=== PATIENT | female | born 1965 | race Caucasian/White ===

== ENCOUNTER 2020-07-02 15:44 | Outpatient (CLI) | payer BC, OTHER ==
--- NOTE | 2020-07-04 09:51 | MRI Report ---
PROCEDURE: Foot LT W/O INDICATIONS: INTERMETATARSAL PAIN LT FOOT TECHNIQUE: Noncontrast coronal and sagittal T1 spin echo and STIR; axial T1 spin echo and T2 fast spin echo with fat saturation through the left foot. COMPARISON: None. FINDINGS: Image quality: Excellent. Bones: The visualized bone marrow demonstrates normal signal on all sequences. The overlying cortex appears intact. No fractures lines or intra-osseous lesions. Soft tissues: In the area of the fiducial placed on the plantar surface of the forefoot, no definite focal abnormal signal abnormality is seen. This is in the region of the flexor tendons of the third and fourth toe however these appear normal. Theoretically, the fat signal intensity seen in this loca tion could be related to lipoma although doubtful given symmetric appearance to the other toes in the similar plantar region. This is also the location of the distal plantar fascia The scanned muscles demonstrate normal overall bulk and internal signal. Subcutaneous tissues appear normal as well. No soft tissue masses are present. IMPRESSION: No discrete mass identified in the region of the plantar forefoot, marked by the fiducial. Technicall y, a small lipoma cannot be entirely excluded. Recommend clinical management. Fluid between the first-second and third-fourth metatarsal heads raising possibility of intermetatars al bursitis. No evidence of stress fracture Normal MR appearance of the plantar tendons, and plantar fascia. Reviewed by: Carson Moy MD on 07/04/2020 9:50 AM PDT Approved by: Carson Moy MD on 07/04/2020 9:50 AM PDT Station ID: [id number]
== END 2020-07-02 15:45 | disposition home or self-care (01) ==
LOC: DI 15:44
PROVIDERS: ATTEND Podiatrist
DX: R93.6 Abnormal findings on diagnostic imaging of limbs (principal)

== ENCOUNTER 2021-11-17 15:10 | Emergency (ER) | payer BC, OTHER ==
[2021-11-17 15:17] VITALS: BP 160/102
--- NOTE | 2021-11-17 15:35 | ED Physician Documentation ---
PD HPI LOWER EXT INJURY - Stated complaint Stated Complaint: R ANKLE INJ - Chief complaint Chief Complaint: Trauma Ext - History obtained from History obtained from: Patient - History of Present Illness PD HPI LOW EXT INJURY LOCATION: Right, Ankle Type of injury: Twist Where injury occurred: Home Timing - onset: How many hours ago (2) Timing - duration: Hours (2) Timing - details: Abrupt onset, Still present Worsened by: Moving, Palpating, Other (walking) Associated symptoms: Swelling. No: Weakness, Numbness Similar symptoms before: Has not had sx before Recently seen: Not recently seen Review of Systems Skin: denies: Abrasion (s), Laceration (s) Neurologic: denies: Focal weakness, Numbness PD PAST MEDICAL HISTORY - Past Medical History Cardiovascular: Hypertension Respiratory: None Neuro: None GI: None CLINICAL LABORATORY ASSISTANT: None : None HEENT: None Psych: None Musculoskeletal: None Derm: None - Past Surgical History Past Surgical History: Yes - Present Medications Home Medications: Ambulatory Orders Medication Instructions Recorded Confirmed Calcium Citrate/Vitamin D3 2 tab PO DAILY 11/17/21 11/17/21 [Calcium Cit 200 mg-D3 125 Unit] Multivitamin 1 tab PO DAILY 11/17/21 11/17/21 - Allergies Allergies/Adverse Reactions: Allergies Allergy/AdvReac Type Severity Reaction Status Date / Time No Known Drug Allergies Allergy Verified 11/17/21 15:34 - Social History Does the pt smoke?: Yes Smoking Status: Current every day smoker Does the pt drink ETOH?: No Does the pt have substance abuse?: No - Immunizations Immunizations are current?: Yes - POLST Patient has POLST: No PD ED PE NORMAL - Vitals Vital signs reviewed: Yes - General General: Alert and oriented X 3, Well developed/nourished, Other (appears in pain due to ankle. ) - Derm Derm: Normal color, Warm and dry - Extremities Extremities: Other (right ankle with general tenderness and swelling, but mostly over lateral malleolus. Stress testing limited due to pain and swelling, but no gross laxity with inversion. ) - Neuro Neuro: Alert and oriented X 3, No motor deficit, No sensory deficit, Normal speech Results - Vitals Vitals: Vital Signs - 24 hr 11/17/21 15:14 Temperature 36.7 C Heart Rate 112 H Respiratory 18 Rate Blood Pressure 160/102 H O2 Saturation 98 Oxygen O2 Source Room air - Rads (name of study) right ankle Radiology: Prelim report reviewed (minimally displaced fracture of lateral malleolus. ), EMP read contemporaneously (distal fibular avulsion fracture. ), See rad report PD MEDICAL DECISION MAKING - ED course Complexity details: reviewed results (small avulsion fracture distal fibula. ), considered differential, d/w patient Departure - Departure Disposition: 01 Home, Self Care Clinical Impression: Fracture of distal end of fibula Qualifiers: Encounter type: initial encounter Fracture type: closed Fracture morphology: unspecified fracture morphology Laterality: right Qualified Code(s): S82.831A - Other fracture of upper and lower end of right fibula, initial encounter for closed fracture Condition: Stable Record reviewed to determine appropriate education?: Yes Instructions: ED Fx Ankle Lateral Malleolus Follow-Up: EUNICE LANDERS MD [Primary Care Provider] - Morgan Bonilla MD [Provider Admit Priv/Credential] - Comments: Use ibuprofen or naproxen anti-inflammatories 2-3 times daily over the next week or so. To that add Tylenol every 4-6 hours if needed for pain. You do have a small avulsion fracture off the end of the fibula which is the outside part of the ankle. This represents an attachment point for the ligaments on the outside of the ankle and means that some of the ligaments were uprooted. These can take several weeks or more to heal. Use the walking cast boot when up and around over the next 3 weeks or so. Follow-up with orthopedics in about 7 to 10 days for recheck to ensure its healing up well along the way. Call for an appointment. Progress activity as tolerated based on comfort. Ice elevate and rest the ankle often over the next few days to reduce swelling. Discharge Date/Time: 11/17/21 16:28
--- NOTE | 2021-11-17 15:53 | XRAY Report ---
PROCEDURE: Ankle 3 View RT INDICATIONS: Trauma TECHNIQUE: 3 views of the ankle were acquired. COMPARISON: April 10, 2013. FINDINGS: BONES: Minimal displaced fracture of the lateral malleolus. The ankle mortise is maintained on these nonstressed views. SOFT TISSUES: Lateral soft tissue swelling. IMPRESSION: 1.Minimal displaced fracture of the lateral malleolus. Reviewed by: Delfino Campos MD on 11/17/2021 3:52 PM PST Approved by: Delfino Campos MD on 11/17/2021 3:52 PM PST Station ID: [id number]
== END 2021-11-17 16:28 | disposition home or self-care (01) ==
LOC: ED 15:10
DX: S82.61XA Displaced fracture of lateral malleolus of right fibula, initial encounter for closed fracture (principal); X50.1XXA Overexertion from prolonged static or awkward postures, initial encounter; Y92.009 Unspecified place in unspecified non-institutional (private) residence as the place of occurrence of the external cause; F17.200 Nicotine dependence, unspecified, uncomplicated
CPT/HCPCS: 99283